=== PATIENT | female | born 1930 ===

== ENCOUNTER 2016-12-21 15:38 | Inpatient (IN) | payer OTHER ==
[2016-12-21 17:16] VITALS: BMI 21.5
[2016-12-21 19:40] VITALS: RESP 20
[2016-12-21] MEDS: Ergocalciferol 50,000 Intl Units Cap PO SCH (21:00)
[2016-12-22] MEDS ORDERED: cefTRIAXone 1 gm/NS 100ML IVPB SCH (09:00)
[2016-12-22] MEDS ORDERED: cefTRIAXone IV 1 gm in Dextros 50 ML BAG IVPB SCH (09:00)
[2016-12-22] MEDS: Lidocaine 5% Patch TD SCH (09:53)
[2016-12-22] MEDS: Enoxaparin 40 mg Syringe SC SCH (09:54)
[2016-12-23] MEDS: cefTRIAXone IV 1 gm in Dextros 50 ML IVPB SCH (08:59)
[2016-12-23] MEDS: Lidocaine 5% Patch TD SCH (09:00)
[2016-12-23] MEDS: Enoxaparin 40 mg Syringe SC SCH (09:02)
--- NOTE | 2016-12-23 11:14 | CP.PCM.HP ---
History of Present Illness - History of Present Illness History of Present Illness: This is an 86 y/o female with unknown PMH was brought in by EMS after being found on the floor at home. She was down for an unknown period of time, and her was found near her; it is not known how long he had been . Patient c/o of dizziness and hip pain. CT head and hip showed no acute pathology. Patient is being admitted to TCU for further physical therapy and occupational therapy and further workup by consultants Pt now alert, oriented , follows commands Consultants Neurosurgery : Dr Melo Neuro: Dr Doyle Psyc: Dr Dietz Podiatry Present on Admission - Present on Admission Any Indicators Present on Admission: No Review of Systems - Hematologic/Lymphatic Additional comments: GENERAL/CONSTITUTIONAL: The patient denies fever, fatigue, weakness, weight gain or weight loss. HEAD, EYES, EARS, NOSE AND THROAT: Eyes - The patient denies pain, redness, loss of vision, double or blurred vision, flashing lights or spots, dryness, Ears, nose, mouth and throat. The patient denies ringing in the ears, loss of hearing, nosebleeds, loss of sense of smell, dry sinuses, sinusitis, post nasal drip, CARDIOVASCULAR: The patient denies chest pain, chest pressure, or irregular heartbeats, RESPIRATORY: The patient denies chronic dry cough, coughing up blood, coughing up mucus, wheezing, or shortness of breath. GASTROINTESTINAL: The patient admits to decreased appetite, denies nausea, vomiting, vomiting blood or coffee ground material, heartburn, regurgitation, diarrhea, constipation, gas, blood in the stools, black tarry stools. GENITOURINARY: The patient denies difficult urination, pain or burning with urination, blood in the urine, frequency, or urgency MUSCULOSKELETAL: The patient denies arm, buttock, thigh or calf cramps. No joint or muscle pain. No muscle weakness or tenderness. No joint swelling, neck pain, back pain. SKIN: The patient denies easy bruising, skin redness, skin rash, hives, sensitivity to sun exposure, tightness, nodules or bumps, hair loss, color changes in the hands or feet with cold. NEUROLOGIC: The patient denies headache, dizziness, fainting, muscle spasm, loss of consciousness, sensitivity or pain in the hands and feet or memory loss. PSYCHIATRIC: The patient denies anxiety, depression, or thoughts of suicide. ENDOCRINE: The patient denies intolerance to hot or cold temperature, flushing, fingernail changes, increased thirst, or increased salt intake HEMATOLOGIC/LYMPHATIC: The patient denies anemia, bleeding tendency or clotting tendency. ALLERGIC/IMMUNOLOGIC: The patient denies rhinitis, asthma, skin sensitivity, latex allergies or sensitivity. Past Patient History - Past Medical History & Family History Past Medical History?: No Past Family History: Reviewed and not pertinent - Past Social History Smoking Status: Unknown If Ever Smoked - HEMATOLOGICAL/ONCOLOGICAL Hx AIDS: No Hx Human Immunodeficiency Virus (HIV): No - MUSCULOSKELETAL/RHEUMATOLOGICAL Hx Falls: Yes - PSYCHIATRIC Hx Substance Use: No (unknown) - SURGICAL HISTORY Hx Surgeries: No (unable to obtain) - ANESTHESIA Hx Anesthesia: (unknown) Hx Anesthesia Reactions: (Unknown) Hx Malignant Hyperthermia: (unknown) Meds Allergies/Adverse Reactions: Allergies Allergy/AdvReac Type Severity Reaction Status Date / Time No Known Allergies Allergy Verified 12/18/16 19:17 Physical Exam - Additional Findings Additional findings: Physical exam: Constitutional- cooperative, awake although somewhat lethargic, responds appropriately Head- NCAT, PERRL Eye- PERRL, normal accommodation ENT- normal exam, MMM. Neck- normal inspection, supple, no JVD Respiratory- CTAB, no wheezes rales rhonchi Cardiovascular- RRR, +S1, +S2 no MRG GI/Abdominal- normal bowel sounds, soft, no mass, no hsm Skin- warm, dry Extremities Exam- normal capillary refill, normal inspection Neurological Exam- alert, stable gait Psych- normal mood, normal affect Results - Vital Signs Recent Vital Signs: Last Vital Signs Temp 98.1 F 12/22/16 18:55 Pulse 75 12/22/16 18:55 Resp 20 12/22/16 18:55 BP 136/77 12/22/16 18:55 Pulse Ox 100 12/22/16 18:55 - Labs Labs: Laboratory Results - last 24 hr 12/22/16 12/22/16 12/22/16 06:17 10:48 16:33 POC Glucose (mg/dL) 90 156 H 98 Assessment & Plan - Assessment and Plan (Free Text) Plan: This is an 86 y/o female with unknown PMH was brought in by EMS after being found on the floor at home. She was down for an unknown period of time, and her was found near her; it is not known how long he had been . Patient c/o of dizziness and hip pain. CT head and hip showed no acute pathology. Pt now alert, oriented , follows commands 1. Altered mental state unclear etiology- possibly related to UTI As per chart and police report patient was found on the floor in her home for unknown period of time and her was next to her CT head showed no acute pathology , Ventriculomegaly Ventriculomegaly may be due to atrophy from old age however further work up as outpt with Dr Victor to r/o NPH Neurology consulted - Dr Doyle carotid doppler showed no stenosis Echo- Mild concentric LV hypertrophy, LV function normal, LVEF within normal range Psych eval since patient's just passed and she was found lying next to him - Further monitoring in TCU and PT/OT 2. UTI urine appears cloudy with WBC , bacteria and LE Continue Rocephin IV Urine culture: Gram neg rods 3. Fall Ct hip with no fracture Ct head with no acute pathology Continue Lidoderm patch to sacral and right hip area PT / OT ongoing 4. Stage II sacral decubitus ulcer most likely secondary to moisture contact wound care consult 5. DVT PPx lovenox
[2016-12-23] MEDS ORDERED: Oxycodone/Acetaminophen 5/325 mg Tab PO PRN (17:04)
[2016-12-24] MEDS: Enoxaparin 40 mg Syringe SC SCH (09:03)
[2016-12-24] MEDS: Lidocaine 5% Patch TD SCH (09:04)
[2016-12-24] MEDS: cefTRIAXone IV 1 gm in Dextros 50 ML IVPB SCH (09:06)
[2016-12-25] MEDS: Lidocaine 5% Patch TD SCH (08:33)
[2016-12-25] MEDS: Enoxaparin 40 mg Syringe SC SCH (08:33)
[2016-12-25] MEDS: cefTRIAXone IV 1 gm in Dextros 50 ML IVPB SCH (08:33)
--- NOTE | 2016-12-25 12:07 | CP.PCM.PN ---
Subjective - Date & Time of Evaluation Date of Evaluation: 12/25/16 Time of Evaluation: 11:30 - Subjective Subjective: Elderly female lying in bed , complaining of pain to her right flank and right buttock area. With episode of diarrhea today that was reported back as C.diff positive. states that is unable to ambulate because of the pain Tmax 100, BP stable Objective - Vital Signs/Intake and Output Vital Signs (last 24 hours): Temp Pulse Resp BP Pulse Ox 98.1 F 79 20 132/81 95 12/25/16 08:24 12/25/16 08:24 12/25/16 08:24 12/25/16 08:24 12/25/16 08:24 - Medications Medications: Current Medications Acetaminophen (Tylenol 325mg Tab) 650 mg PO Q6 PRN PRN Reason: Headache Last Admin: 12/25/16 01:39 Dose: 650 mg Docusate Sodium (Colace) 100 mg PO BID [facility] Last Admin: 12/25/16 08:32 Dose: 100 mg Enoxaparin Sodium (Lovenox) 40 mg SC DAILY [facility] PRN Reason: Protocol Last Admin: 12/25/16 08:33 Dose: 40 mg Ergocalciferol (Drisdol 50,000 Intl Units Cap) 1 cap PO Q7D [facility] Last Admin: 12/21/16 21:00 Dose: 1 cap Famotidine (Pepcid) 20 mg PO DAILY [facility] Last Admin: 12/25/16 08:33 Dose: 20 mg Ceftriaxone Sodium (Rocephin Iv 1 Gm Duplex) 50 mls @ 50 mls/hr IVPB DAILY [facility] Last Admin: 12/25/16 08:33 Dose: 50 mls/hr Lidocaine (Lidoderm) 1 ea TD DAILY [facility] Last Admin: 12/25/16 08:33 Dose: 1 ea Oxycodone/Acetaminophen (Percocet 5/325 Mg Tab) 1 tab PO Q6 PRN PRN Reason: Pain, moderate (4-7) Stop: 12/26/16 17:05 - Constitutional Appears: Non-toxic, No Acute Distress, Other (eldery, stated age) - Head Exam Head Exam: ATRAUMATIC, NORMAL INSPECTION, NORMOCEPHALIC - Eye Exam Eye Exam: EOMI, Normal appearance, PERRL Pupil Exam: NORMAL ACCOMODATION - ENT Exam ENT Exam: Mucous Membranes Moist, Normal Exam - Neck Exam Neck Exam: Full ROM, Normal Inspection - Respiratory Exam Respiratory Exam: Clear to Ausculation Bilateral, NORMAL BREATHING PATTERN. absent: Rales, Rhonchi, Wheezes - Cardiovascular Exam Cardiovascular Exam: REGULAR RHYTHM, +S1, +S2. absent: JVD - GI/Abdominal Exam GI & Abdominal Exam: Soft, Normal Bowel Sounds. absent: Distended, Guarding, Tenderness, Rebound - Rectal Exam Rectal Exam: Deferred - Extremities Exam Extremities Exam: Normal Capillary Refill, Normal Inspection. absent: Calf Tenderness, Pedal Edema - Back Exam Back Exam: NORMAL INSPECTION - Neurological Exam Neurological Exam: Alert, Awake, CN II-XII Intact, Oriented x3 - Psychiatric Exam Psychiatric exam: Flat Affect - Skin Skin Exam: Dry, Normal Color, Warm Assessment and Plan - Assessment and Plan (Free Text) Assessment: 86 y/o female with unknown PMH was brought in by EMS after being found on the floor at home. She was down for an unknown period of time, and her was found near her; it is not known how long he had been . Patient complained of dizziness and hip pain. CT head and hip showed no acute pathology. initially she was admitted for AMS of unknown etiology and was diagnosed with UTI secondary to proteus and satrted on rocephin IV. She was transferred to TCu for physical therapy and continuation of IV antibiotics At present she is AAOx3 with diarrhea this AM and pain to right buttock and flank area 1. C.diff colitis with episode of diarrhea today that was reported positive for Toxin and Ag Will place on contact isolation Start Flagyl 500 mg Iv Q8 hours 2. Deconditioning, generalized body aches /history of fall imaging on admission reported with no acute pathology or fracture Continue pian management with lidoderm patch and percoset PRN continue physical therapy 3. UTI urine positive for Proteus multi drug resistant Will d/c rocephin. Give 1 dose of Meropenem IV ID consulted 4. Altered mental state-- unclear etiology, resolved possibly related to UTI As per chart and police report patient was found on the floor in her home for unknown period of time and her was next to her CT head showed no acute pathology , Ventriculomegaly Ventriculomegaly may be due to atrophy from old age however further work up as outpt with Dr Victor to r/o [facility]PH Neurology consulted - Dr Doyle carotid doppler showed no stenosis Echo- Mild concentric LV hypertrophy, LV function normal, LVEF within normal range Psych eval appreciated. No psychiatric admission or medications recommended at this time 5. Stage II sacral decubitus ulcer most likely secondary to moisture contact wound care consulted 6. DVT PPx SCD Discontinued lovenox secondary to thrombocytopenia 7. Thrombocytopenia unclear etiology monitor for now lovenox discontinued
[2016-12-25] MEDS ORDERED: Meropenem 1 GM in Sodium Chloride 0.9% 100 ML IVPB ONE (14:30)
[2016-12-25] MEDS ORDERED: metroNIDAZOLE 500mg/100ml NS 100 ML IVPB SCH (17:00)
--- NOTE | 2016-12-25 18:16 | CP.PCM.CON ---
History of Present Illness - History of Present Illness History of Present Illness: 86 year old female seen for elongated painful toenails. Patient is AAO x 3 and NAD resting comfortably in bed. Denies any further pedal complaints at this time. Past Patient History - Past Medical History & Family History Past Medical History?: No Past Family History: Reviewed and not pertinent - Past Social History Smoking Status: Unknown If Ever Smoked - HEMATOLOGICAL/ONCOLOGICAL Hx AIDS: No Hx Human Immunodeficiency Virus (HIV): No - MUSCULOSKELETAL/RHEUMATOLOGICAL Hx Falls: Yes - PSYCHIATRIC Hx Substance Use: No (unknown) - SURGICAL HISTORY Hx Surgeries: No (unable to obtain) - ANESTHESIA Hx Anesthesia: (unknown) Hx Anesthesia Reactions: (Unknown) Hx Malignant Hyperthermia: (unknown) Meds Allergies/Adverse Reactions: Allergies Allergy/AdvReac Type Severity Reaction Status Date / Time No Known Allergies Allergy Verified 12/18/16 19:17 - Medications Medications: Current Medications Acetaminophen (Tylenol 325mg Tab) 650 mg PO Q6 PRN PRN Reason: Headache Last Admin: 12/25/16 16:25 Dose: 650 mg Enoxaparin Sodium (Lovenox) 40 mg SC DAILY [facility] PRN Reason: Protocol Last Admin: 12/25/16 08:33 Dose: 40 mg Ergocalciferol (Drisdol 50,000 Intl Units Cap) 1 cap PO Q7D [facility] Last Admin: 12/21/16 21:00 Dose: 1 cap Famotidine (Pepcid) 20 mg PO DAILY [facility] Last Admin: 12/25/16 08:33 Dose: 20 mg Meropenem 500 mg/ Sodium (Chloride) 100 mls @ 100 mls/hr IVPB Q8 [facility] PRN Reason: Protocol Lidocaine (Lidoderm) 1 ea TD DAILY [facility] Last Admin: 12/25/16 08:33 Dose: 1 ea Oxycodone/Acetaminophen (Percocet 5/325 Mg Tab) 1 tab PO Q6 PRN PRN Reason: Pain, moderate (4-7) Stop: 12/26/16 17:05 Last Admin: 12/25/16 12:41 Dose: 1 tab Vancomycin HCl (Vancocin (Oral/Rectal Use)) 125 mg [place] Q6 [facility] PRN Reason: Protocol Physical Exam - Constitutional Appears: Well, Non-toxic, No Acute Distress - Extremities Exam Additional comments: LE focused exam Vasc: DP/PT pulses palpable 2/4 b/l. Skin temperature warm to warm from proximal to distal. CFT < 3 seconds to all digits b/l. Pedal hair growth appreciated. No edema noted b/l Neuro: Epicritic and protective sensation grossly intact b/l Derm: No open lesions, wounds, maceration, xerosis, abnormal pigmentation or abnormal growths noted. Nails noted to be elongated, dystrophic and discolored MSK: No POP to b/l LE. MMT 5/5 on inversion, eversion, dorsiflexion and plantarflexion of feet b/l. ROM WNL to all major joints of LE - Neurological Exam Neurological exam: Alert, Oriented x3 - Psychiatric Exam Psychiatric exam: Normal Affect, Normal Mood Results - Vital Signs Recent Vital Signs: Last Vital Signs Temp 100.0 F H 12/25/16 16:45 Pulse 82 12/25/16 16:45 Resp 20 12/25/16 16:45 BP 122/68 12/25/16 16:45 Pulse Ox 95 12/25/16 16:45 - Labs Labs: Laboratory Results - last 24 hr 12/24/16 12/25/16 12/25/16 20:51 05:12 10:55 POC Glucose (mg/dL) 112 H 102 115 H C. difficile Ag & Toxin 12/25/16 12/25/16 11:57 16:00 POC Glucose (mg/dL) 108 C. difficile Ag & Toxin Positive H Assessment & Plan - Assessment and Plan (Free Text) Assessment: 86 year old female seen for elongated, painful toenails b/l Plan: Patient seen and evaluated bedside Nails reduced to appropriate length using nail nippers without incident Patient tolerated procedure well Podiatry will sign off at this time Thank you for the consult, please reconsult as needed - Date & Time Date: 12/25/16 Time: 18:17
[2016-12-25] MEDS: Vancomycin 500 mg (Oral/Rectal USE) PR SCH (21:58)
[2016-12-26] MEDS ORDERED: Meropenem 500 MG in Sodium Chloride 0.9% 100 ML IVPB SCH (01:00)
[2016-12-26] MEDS: Vancomycin 500 mg (Oral/Rectal USE) PR SCH ×4 (03:40→21:24)
[2016-12-26] MEDS: Meropenem 500 MG in Sodium Chloride 0.9% 100 ML IVPB SCH ×3 (04:15→18:49)
[2016-12-26 07:28] LABS: BLOOD UREA NITROGEN 10 mg/dl (7-17); CALCIUM 8.4 mg/dL (8.4-10.2); CARBON DIOXIDE 29 mmol/L (22-30); CHLORIDE 100 mmol/L (98-107); GFR AFRICAN-AMERICAN > 60; GLUCOSE,RANDOM 103 mg/dL (65-105); POTASSIUM 3.5 MMOL/L (3.6-5.0); SODIUM 136 mmol/l (132-148)
[2016-12-26 07:49] LABS: HEMATOCRIT 35.2 % (34.0-47.0); MEAN CELL VOLUME 95.1 fl (81.0-99.0); MEAN CORPUSCULAR HEMOGLOBIN 30.8 pg (27.0-31.0); MEAN CORPUSCULAR HGB CONC 32.4 g/dL (33.0-37.0); RED CELL DISTRIBUTION WIDTH 13.8 % (11.5-14.5); WHITE BLOOD COUNT 20.5 K/uL (4.8-10.8)
[2016-12-26] MEDS: Lidocaine 5% Patch TD SCH (09:14)
[2016-12-26] MEDS: Enoxaparin 40 mg Syringe SC SCH (09:15)
--- NOTE | 2016-12-26 12:01 | CP.PCM.CON ---
History of Present Illness - History of Present Illness History of Present Illness: This is an 86 y/o female with unknown PMH was brought in by EMS after being found on the floor at home. Urine culture postive for MDR proteus Past Patient History - Past Medical History & Family History Past Medical History?: No Past Family History: Reviewed and not pertinent - Past Social History Smoking Status: Unknown If Ever Smoked - HEMATOLOGICAL/ONCOLOGICAL Hx AIDS: No Hx Human Immunodeficiency Virus (HIV): No - MUSCULOSKELETAL/RHEUMATOLOGICAL Hx Falls: Yes - PSYCHIATRIC Hx Substance Use: No (unknown) - SURGICAL HISTORY Hx Surgeries: No (unable to obtain) - ANESTHESIA Hx Anesthesia: (unknown) Hx Anesthesia Reactions: (Unknown) Hx Malignant Hyperthermia: (unknown) Meds Allergies/Adverse Reactions: Allergies Allergy/AdvReac Type Severity Reaction Status Date / Time No Known Allergies Allergy Verified 12/18/16 19:17 - Medications Medications: Current Medications Acetaminophen (Tylenol 325mg Tab) 650 mg PO Q6 PRN PRN Reason: Headache Last Admin: 12/25/16 16:25 Dose: 650 mg Acetaminophen (Tylenol 325mg Tab) 650 mg PO Q6 PRN PRN Reason: Fever >100.4 F Enoxaparin Sodium (Lovenox) 40 mg SC DAILY [facility] PRN Reason: Protocol Last Admin: 12/26/16 09:15 Dose: 40 mg Ergocalciferol (Drisdol 50,000 Intl Units Cap) 1 cap PO Q7D [facility] Last Admin: 12/21/16 21:00 Dose: 1 cap Famotidine (Pepcid) 20 mg PO DAILY [facility] Last Admin: 12/26/16 09:15 Dose: 20 mg Meropenem 500 mg/ Sodium (Chloride) 100 mls @ 100 mls/hr IVPB Q8@0500,1300, 2100 [facility] PRN Reason: Protocol Last Admin: 12/26/16 04:15 Dose: 100 mls/hr Lidocaine (Lidoderm) 1 ea TD DAILY [facility] Last Admin: 12/26/16 09:14 Dose: 1 ea Oxycodone/Acetaminophen (Percocet 5/325 Mg Tab) 1 tab PO Q6 PRN PRN Reason: Pain, moderate (4-7) Stop: 12/26/16 17:05 Last Admin: 12/25/16 12:41 Dose: 1 tab Vancomycin HCl (Vancocin (Oral/Rectal Use)) 125 mg [place] Q6 [facility] PRN Reason: Protocol Last Admin: 12/26/16 09:15 Dose: 125 mg Results - Vital Signs Recent Vital Signs: Last Vital Signs Temp 98.1 F 12/26/16 08:09 Pulse 81 12/26/16 08:09 Resp 20 12/26/16 08:09 BP 122/64 12/26/16 08:09 Pulse Ox 95 12/26/16 08:09 - Labs Result Diagrams: 12/26/16 05:55 12/26/16 05:55 Labs: Laboratory Results - last 24 hr 12/25/16 12/25/16 12/25/16 11:57 16:00 20:33 WBC RBC Hgb Hct MCV MCH MCHC RDW Plt Count Sodium Potassium Chloride Carbon Dioxide Anion Gap BUN Creatinine Est GFR ( Amer) Est GFR (Non-Af Amer) POC Glucose (mg/dL) 108 112 H Random Glucose Calcium C. difficile Ag & Toxin Positive H 12/26/16 12/26/16 12/26/16 05:17 05:55 05:55 WBC 20.5 H D RBC 3.70 L Hgb 11.4 L Hct 35.2 MCV 95.1 MCH 30.8 MCHC 32.4 L RDW 13.8 Plt Count 210 Sodium 136 Potassium 3.5 L Chloride 100 Carbon Dioxide 29 Anion Gap 11 BUN 10 Creatinine 0.6 L Est GFR ( Amer) > 60 Est GFR (Non-Af Amer) > 60 POC Glucose (mg/dL) 106 Random Glucose 103 Calcium 8.4 C. difficile Ag & Toxin Assessment & Plan - Assessment and Plan (Free Text) Assessment: MDR proteus UTI C.diff diarrhea Continue Meropenem for a total of 7 days Continue Vancomycin 125 mg po q1d for 2 weeks
[2016-12-27] MEDS: Meropenem 500 MG in Sodium Chloride 0.9% 100 ML IVPB SCH ×4 (00:49→16:14)
[2016-12-27] MEDS: Vancomycin 500 mg (Oral/Rectal USE) PR SCH ×3 (03:22→16:16)
[2016-12-27] MEDS: Enoxaparin 40 mg Syringe SC SCH (08:52)
[2016-12-27] MEDS: Lidocaine 5% Patch TD SCH (08:52)
[2016-12-27 11:04] LABS: BLOOD UREA NITROGEN 10 mg/dl (7-17); CALCIUM 8.1 mg/dL (8.4-10.2); CARBON DIOXIDE 27 mmol/L (22-30); CHLORIDE 104 mmol/L (98-107); GFR AFRICAN-AMERICAN > 60; GLUCOSE,RANDOM 133 mg/dL (65-105); POTASSIUM 3.6 MMOL/L (3.6-5.0); SODIUM 136 mmol/l (132-148)
[2016-12-27 11:06] LABS: BASO % 0.2 % (0.0-2.0); EOS # 0.2 K/uL (0.0-0.7); EOS % 0.9 % (0.0-4.0); HEMATOCRIT 33.1 % (34.0-47.0); LYMPH # 0.8 K/uL (1.0-4.3); LYMPH % 4.1 % (20.0-40.0); MEAN CELL VOLUME 95.3 fl (81.0-99.0); MEAN CORPUSCULAR HEMOGLOBIN 30.8 pg (27.0-31.0); MEAN CORPUSCULAR HGB CONC 32.3 g/dL (33.0-37.0); MEAN PLATELET VOLUME 9.3 fl (7.2-11.7); MONO # 1.6 K/uL (0.0-0.8); MONO % 8.3 % (0.0-10.0); NEUT % 86.5 % (50.0-75.0); PLATELET COUNT 234 K/uL (130-400); RED CELL DISTRIBUTION WIDTH 13.9 % (11.5-14.5); WHITE BLOOD COUNT 19.6 K/uL (4.8-10.8)
--- NOTE | 2016-12-27 11:36 | CP.PCM.PN ---
Subjective - Date & Time of Evaluation Date of Evaluation: 12/27/16 Time of Evaluation: 11:00 - Subjective Subjective: Patient seen and examined bedside. Elderly female of stated age lying in bed in NAD. Complains of some abdominal pain and with episodes of diarrhea With poor PO intake and refused therapy today Tmax 100.9 WBC 19 K Hgb 10.7 No acute issues overnight Objective - Vital Signs/Intake and Output Vital Signs (last 24 hours): Temp Pulse Resp BP Pulse Ox 98.1 F 76 20 109/61 96 12/27/16 08:18 12/27/16 08:18 12/27/16 08:18 12/27/16 08:18 12/27/16 08:18 - Medications Medications: Current Medications Acetaminophen (Tylenol 325mg Tab) 650 mg PO Q6 PRN PRN Reason: Headache Last Admin: 12/25/16 16:25 Dose: 650 mg Acetaminophen (Tylenol 325mg Tab) 650 mg PO Q6 PRN PRN Reason: Fever >100.4 F Last Admin: 12/26/16 16:36 Dose: 650 mg Enoxaparin Sodium (Lovenox) 40 mg SC DAILY [facility] [place] PRN Reason: Protocol Last Admin: 12/27/16 08:52 Dose: 40 mg Ergocalciferol (Drisdol 50,000 Intl Units Cap) 1 cap PO Q7D [facility] [place] Last Admin: 12/21/16 21:00 Dose: 1 cap Famotidine (Pepcid) 20 mg PO DAILY [facility] [place] Last Admin: 12/27/16 08:52 Dose: 20 mg Dextrose/Sodium Chloride (Dextrose 5%-0.9% Ns 500 Ml) 1,000 mls @ 80 mls/hr IV .[id number] [facility] [place] Stop: 12/27/16 16:14 Last Admin: 12/26/16 16:40 Dose: 80 mls/hr Meropenem 500 mg/ Sodium (Chloride) 100 mls @ 100 mls/hr IVPB Q8@0100,0900, 1700 [facility] [place] PRN Reason: Protocol Last Admin: 12/27/16 08:48 Dose: 100 mls/hr Lidocaine (Lidoderm) 1 ea TD DAILY [facility] [place] Last Admin: 12/27/16 08:52 Dose: 1 ea Vancomycin HCl (Vancocin (Oral/Rectal Use)) 125 mg [place] Q6 [facility] PRN Reason: Protocol Last Admin: 12/27/16 09:07 Dose: 125 mg - Labs Labs: 12/27/16 10:40 12/27/16 10:40 - Constitutional Appears: Non-toxic, No Acute Distress - Head Exam Head Exam: ATRAUMATIC, NORMAL INSPECTION, NORMOCEPHALIC - Eye Exam Eye Exam: EOMI, Normal appearance, PERRL Pupil Exam: NORMAL ACCOMODATION - ENT Exam ENT Exam: Mucous Membranes Moist, Normal Exam - Neck Exam Neck Exam: Full ROM, Normal Inspection - Respiratory Exam Respiratory Exam: Clear to Ausculation Bilateral, NORMAL BREATHING PATTERN. absent: Rhonchi, Wheezes - Cardiovascular Exam Cardiovascular Exam: REGULAR RHYTHM, RRR, +S1, +S2. absent: JVD - GI/Abdominal Exam GI & Abdominal Exam: Soft, Normal Bowel Sounds. absent: Distended, Guarding, Rigid, Rebound - Rectal Exam Rectal Exam: Deferred - Extremities Exam Extremities Exam: Full ROM, Normal Capillary Refill, Normal Inspection. absent : Pedal Edema - Back Exam Back Exam: NORMAL INSPECTION - Neurological Exam Neurological Exam: Alert, Awake, CN II-XII Intact, Oriented x3 - Psychiatric Exam Psychiatric exam: Flat Affect - Skin Skin Exam: Dry, Normal Color, Warm Additional comments: moisture related buttock excoriation Assessment and Plan - Assessment and Plan (Free Text) Assessment: 86 y/o female with unknown PMH was brought in by EMS after being found on the floor at home. She was down for an unknown period of time, and her was found near her; it is not known how long he had been . Patient complained of dizziness and hip pain. CT head and hip showed no acute pathology. Initially she was admitted for AMS of unknown etiology and was diagnosed with UTI secondary to proteus and started on rocephin IV. She was transferred to TCu for physical therapy and continuation of IV antibiotics. While in TCU her urine cultures were reported as Multi drug resistant so rocephin changed to Meropenem IV. She also started to have diarrhea and was diagnosed with C.diff colitis and started on Vancomycin PO. ID consulted At present she is AAOx3 with diarrhea and poor po intake 1. C.diff colitis Still with episodes of diarrhea Continue contact isolation WBC elevated to 19 K Tmax 100.9 Continue IVF since patient has poor PO intake and multi episodes of diarrhea On Vancomycin 125 mg po QID as per ID ID consult on board with Dr. Jimenez recommended 2 weeks treatment for C. diff colitis 2. Deconditioning, generalized body aches /history of fall imaging on admission reported with no acute pathology or fracture Continue pain management with lidoderm patch and percoset PRN continue physical therapy 3. UTI urine positive for Proteus multi drug resistant rocephin discontinued and started Meropenem ID consulted Will treat with total 7 days of Meropenem ( 3 # today 4. Altered mental state-- unclear etiology, resolved possibly related to UTI As per chart and police report patient was found on the floor in her home for unknown period of time and her was next to her CT head showed no acute pathology , Ventriculomegaly Ventriculomegaly may be due to atrophy from old age however further work up as outpt with Dr Victor to r/o [facility]PH Neurology consulted - Dr Doyle carotid doppler showed no stenosis Echo- Mild concentric LV hypertrophy, LV function normal, LVEF within normal range Psych eval appreciated. No psychiatric admission or medications recommended at this time 5. Stage II sacral decubitus ulcer most likely secondary to moisture contact wound care consulted 6. DVT PPx SCD Discontinued lovenox secondary to thrombocytopenia 7. Thrombocytopenia unclear etiology monitor for now lovenox discontinued 8. Anemia of chronic disease Continue monitoring hgb 10.7
[2016-12-27 12:12] LABS: EOSINOPHIL 1 % (0-7); NEUTROPHIL 91 % (42-75); TOTAL CELLS COUNTED 100
[2016-12-27] MEDS ORDERED: Oxycodone/Acetaminophen 5/325 mg Tab PO PRN (12:30)
[2016-12-28] MEDS: Vancomycin 500 mg (Oral/Rectal USE) PR SCH ×5 (00:20→22:25)
[2016-12-28] MEDS: Meropenem 500 MG in Sodium Chloride 0.9% 100 ML IVPB SCH ×4 (00:33→22:27)
[2016-12-28] MEDS: Enoxaparin 40 mg Syringe SC SCH (08:56)
[2016-12-28] MEDS: Lidocaine 5% Patch TD SCH (08:57)
--- NOTE | 2016-12-28 17:50 | CP.PCM.PN ---
Subjective - Date & Time of Evaluation Date of Evaluation: 12/28/16 Time of Evaluation: 13:00 - Subjective Subjective: patient seen bedside. elderly female lying in bed with flat affect in NAD Denies any pain Poor PO intake No diarrhea today Hemodynamically stable, afebrile Objective - Vital Signs/Intake and Output Vital Signs (last 24 hours): Temp Pulse Resp BP Pulse Ox 98.8 F 75 20 134/78 98 12/28/16 17:03 12/28/16 17:03 12/28/16 17:03 12/28/16 17:03 12/28/16 17:03 - Medications Medications: Current Medications Acetaminophen (Tylenol 325mg Tab) 650 mg PO Q6 PRN PRN Reason: Headache Last Admin: 12/25/16 16:25 Dose: 650 mg Acetaminophen (Tylenol 325mg Tab) 650 mg PO Q6 PRN PRN Reason: Fever >100.4 F Last Admin: 12/26/16 16:36 Dose: 650 mg Enoxaparin Sodium (Lovenox) 40 mg SC DAILY DAVE PRN Reason: Protocol Last Admin: 12/28/16 08:56 Dose: 40 mg Ergocalciferol (Drisdol 50,000 Intl Units Cap) 1 cap PO Q7D [facility] Last Admin: 12/21/16 21:00 Dose: 1 cap Famotidine (Pepcid) 20 mg PO DAILY [facility] Last Admin: 12/28/16 08:57 Dose: 20 mg Meropenem 500 mg/ Sodium (Chloride) 100 mls @ 100 mls/hr IVPB Q8@0500,1300, 2100 DAVE PRN Reason: Protocol Last Admin: 12/28/16 14:04 Dose: 100 mls/hr Lidocaine (Lidoderm) 1 ea TD DAILY [facility] Last Admin: 12/28/16 08:57 Dose: 1 ea Oxycodone/Acetaminophen (Percocet 5/325 Mg Tab) 1 tab PO Q4 PRN PRN Reason: Pain, severe (8-10) Stop: 12/30/16 12:31 Last Admin: 12/27/16 12:59 Dose: 1 tab Vancomycin HCl (Vancocin (Oral/Rectal Use)) 125 mg LA Q6 DAVE PRN Reason: Protocol Last Admin: 12/28/16 16:50 Dose: 125 mg - Labs Labs: 12/27/16 10:40 12/27/16 10:40 - Constitutional Appears: Non-toxic, No Acute Distress - Head Exam Head Exam: ATRAUMATIC, NORMAL INSPECTION, NORMOCEPHALIC - Eye Exam Eye Exam: EOMI, Normal appearance, PERRL Pupil Exam: NORMAL ACCOMODATION - ENT Exam ENT Exam: Mucous Membranes Moist, Normal Exam - Neck Exam Neck Exam: Full ROM, Normal Inspection - Respiratory Exam Respiratory Exam: Clear to Ausculation Bilateral, NORMAL BREATHING PATTERN. absent: Rales, Rhonchi, Wheezes - Cardiovascular Exam Cardiovascular Exam: REGULAR RHYTHM, RRR, +S1, +S2. absent: JVD - GI/Abdominal Exam GI & Abdominal Exam: Soft, Normal Bowel Sounds. absent: Distended, Guarding, Tenderness, Rebound - Rectal Exam Rectal Exam: Deferred - Extremities Exam Extremities Exam: Full ROM, Normal Inspection. absent: Calf Tenderness, Pedal Edema, Tenderness - Back Exam Back Exam: NORMAL INSPECTION - Neurological Exam Neurological Exam: Alert, Awake, CN II-XII Intact, Oriented x3 - Psychiatric Exam Psychiatric exam: Flat Affect - Skin Skin Exam: Dry, Warm Additional comments: unstagable buttock moisture related excoriation Assessment and Plan - Assessment and Plan (Free Text) Assessment: 86 y/o female with unknown PMH was brought in by EMS after being found on the floor at home. She was down for an unknown period of time, and her was found near her; it is not known how long he had been . Patient complained of dizziness and hip pain. CT head and hip showed no acute pathology. Initially she was admitted for AMS of unknown etiology and was diagnosed with UTI secondary to proteus and started on rocephin IV. She was transferred to [facility] for physical therapy and continuation of IV antibiotics. While in TCU her urine cultures were reported as Multi drug resistant so rocephin changed to Meropenem IV. She also started to have diarrhea and was diagnosed with C.diff colitis and started on Vancomycin PO. ID consulted At present she is AAOx3 with poor po intake , weak and with flat affect. No episodes of diarrhea today 1. C.diff colitis No diarrghea today Continue contact isolation WBC trending down to 19 K , afebrile last 24 hours Continue IVF since patient has poor PO intake On Vancomycin 125 mg po QID as per ID ID consult on board with Dr. Jimenez recommended 2 weeks treatment for C. diff colitis 2. Deconditioning, generalized body aches /history of fall imaging on admission reported with no acute pathology or fracture Continue pain management with lidoderm patch and percoset PRN continue physical therapy 3. UTI urine positive for Proteus multi drug resistant rocephin discontinued and started Meropenem ID consulted Will treat with total 7 days of Meropenem ( 4 # today) 4. Altered mental state-- unclear etiology, resolved possibly related to UTI As per chart and police report patient was found on the floor in her home for unknown period of time and her was next to her CT head showed no acute pathology , Ventriculomegaly Ventriculomegaly may be due to atrophy from old age however further work up as outpt with Dr Victor to r/o [facility] Neurology consulted - Dr Doyle carotid doppler showed no stenosis Echo- Mild concentric LV hypertrophy, LV function normal, LVEF within normal range Psych eval appreciated. No psychiatric admission or medications recommended at this time 5. Stage II sacral decubitus ulcer most likely secondary to moisture contact wound care consulted 6. DVT PPx SCD Discontinued lovenox secondary to thrombocytopenia 7. Thrombocytopenia unclear etiology monitor for now lovenox discontinued 8. Anemia of chronic disease Continue monitoring hgb 10.7
[2016-12-28] MEDS: Dextrose 5%/0.9% NS 1,000 ML IV SCH (19:18)
[2016-12-28] MEDS: Ergocalciferol 50,000 Intl Units Cap PO SCH (19:18)
[2016-12-29] MEDS: Meropenem 500 MG in Sodium Chloride 0.9% 100 ML IVPB SCH ×3 (04:37→21:00)
[2016-12-29] MEDS: Vancomycin 500 mg (Oral/Rectal USE) PR SCH ×4 (04:38→21:08)
[2016-12-29] MEDS: Lidocaine 5% Patch TD SCH (09:56)
[2016-12-29] MEDS: Enoxaparin 40 mg Syringe SC SCH (10:02)
[2016-12-29] MEDS: Dextrose 5%/0.9% NS 1,000 ML IV SCH (17:57)
[2016-12-30] MEDS: Meropenem 500 MG in Sodium Chloride 0.9% 100 ML IVPB SCH ×3 (04:51→22:09)
[2016-12-30] MEDS: Vancomycin 500 mg (Oral/Rectal USE) PR SCH ×4 (04:52→22:11)
[2016-12-30] MEDS: Enoxaparin 40 mg Syringe SC SCH (09:43)
[2016-12-30] MEDS: Lidocaine 5% Patch TD SCH (09:44)
[2016-12-30] MEDS ORDERED: Potassium Chloride 20 MEQ in Dextrose 5%/0.9% NS 1,000 ML IV SCH (20:00)
[2016-12-30] MEDS: Potassium Chl 20 mEq in D5-NS 1,000 ML IV SCH (22:10)
[2016-12-31] MEDS: Vancomycin 500 mg (Oral/Rectal USE) PR SCH ×4 (04:36→21:50)
[2016-12-31] MEDS: Meropenem 500 MG in Sodium Chloride 0.9% 100 ML IVPB SCH ×3 (04:38→21:49)
[2016-12-31 06:15] LABS: HEMATOCRIT 31.5 % (34.0-47.0); MEAN CORPUSCULAR HEMOGLOBIN 31.1 pg (27.0-31.0); MEAN CORPUSCULAR HGB CONC 32.4 g/dL (33.0-37.0); RED CELL DISTRIBUTION WIDTH 13.8 % (11.5-14.5); WHITE BLOOD COUNT 5.2 K/uL (4.8-10.8)
[2016-12-31 06:20] LABS: BLOOD UREA NITROGEN 7 mg/dl (7-17); CALCIUM 8.4 mg/dL (8.4-10.2); CARBON DIOXIDE 31 mmol/L (22-30); CHLORIDE 105 mmol/L (98-107); GFR AFRICAN-AMERICAN > 60; GLUCOSE,RANDOM 93 mg/dL (65-105); POTASSIUM 4.2 MMOL/L (3.6-5.0); SODIUM 141 mmol/l (132-148)
[2016-12-31] MEDS: Enoxaparin 40 mg Syringe SC SCH (08:28)
[2016-12-31] MEDS: Lidocaine 5% Patch TD SCH (08:28)
[2016-12-31] MEDS: Potassium Chl 20 mEq in D5-NS 1,000 ML IV SCH (09:06)
[2017-01-01] MEDS: Meropenem 500 MG in Sodium Chloride 0.9% 100 ML IVPB SCH ×3 (04:58→21:30)
[2017-01-01] MEDS: Vancomycin 500 mg (Oral/Rectal USE) PR SCH ×4 (05:05→22:00)
[2017-01-01] MEDS: Enoxaparin 40 mg Syringe SC SCH (08:41)
[2017-01-01] MEDS: Lidocaine 5% Patch TD SCH (08:42)
--- NOTE | 2017-01-01 16:56 | CP.PCM.PN ---
Subjective - Date & Time of Evaluation Date of Evaluation: 01/01/17 Time of Evaluation: 13:00 - Subjective Subjective: Patient is seen at bedside. She complains of some mild crampy pain occasionally to her abdomen. She is in no apparent distress. Continues to have poor po intake and is not meeting current metabolic requirements. Denies cp/sob/ headache. Objective - Vital Signs/Intake and Output Vital Signs (last 24 hours): Temp Pulse Resp BP Pulse Ox 98.2 F 75 20 139/80 99 01/01/17 16:41 01/01/17 16:41 01/01/17 16:41 01/01/17 16:41 01/01/17 16:41 - Medications Medications: Current Medications Acetaminophen (Tylenol 325mg Tab) 650 mg PO Q6 PRN PRN Reason: Headache Last Admin: 01/01/17 02:07 Dose: 650 mg Acetaminophen (Tylenol 325mg Tab) 650 mg PO Q6 PRN PRN Reason: Fever >100.4 F Last Admin: 12/26/16 16:36 Dose: 650 mg Enoxaparin Sodium (Lovenox) 40 mg SC DAILY DAVE PRN Reason: Protocol Last Admin: 01/01/17 08:41 Dose: 40 mg Ergocalciferol (Drisdol 50,000 Intl Units Cap) 1 cap PO Q7D [facility] Last Admin: 12/28/16 19:18 Dose: 1 cap Famotidine (Pepcid) 20 mg PO DAILY [facility] Last Admin: 01/01/17 08:41 Dose: 20 mg Meropenem 500 mg/ Sodium (Chloride) 100 mls @ 100 mls/hr IVPB Q8@0500,1300, 2100 DAVE PRN Reason: Protocol Last Admin: 01/01/17 13:08 Dose: 100 mls/hr Lidocaine (Lidoderm) 1 ea TD DAILY [facility] Last Admin: 01/01/17 08:42 Dose: 1 ea Megestrol Acetate (Megace) 20 mg PO DAILY DAVE Vancomycin HCl (Vancocin (Oral/Rectal Use)) 125 mg FL Q6 DAVE PRN Reason: Protocol Last Admin: 01/01/17 09:38 Dose: 125 mg - Labs Labs: 12/31/16 05:15 12/31/16 05:15 - Additional Findings Additional findings: Constitutional- cooperative, awake, alert. Head- NCAT, PERRL Eye- PERRL, normal accommodation ENT- normal exam, MMM. Neck- normal inspection, supple, no JVD Respiratory- CTAB, no wheezes rales rhonchi Cardiovascular- RRR, +S1, +S2 no MRG GI/Abdominal- normal bowel sounds, soft, no mass, no hsm Skin- warm, dry Extremities Exam- Unstagable buttock moisture related excoriation noted. normal capillary refill, normal inspection Neurological Exam- alert, stable gait Psych- normal mood, normal affect Assessment and Plan - Assessment and Plan (Free Text) Plan: Assessment: 86 y/o female with unknown PMH was brought in by EMS after being found on the floor at home. She was down for an unknown period of time, and her was found near her; it is not known how long he had been . Patient complained of dizziness and hip pain. CT head and hip showed no acute pathology. Initially she was admitted for AMS of unknown etiology and was diagnosed with UTI secondary to proteus and started on rocephin IV. She was transferred to [facility]Cu for physical therapy and continuation of IV antibiotics. While in TCU her urine cultures were reported as Multi drug resistant so rocephin changed to Meropenem IV. She also started to have diarrhea and was diagnosed with C.diff colitis and started on Vancomycin PO. ID consulted At present she is AAOx3 with poor po intake , weak and with flat affect. No episodes of diarrhea today 1. C.diff colitis No diarrhea today Continue contact isolation WBC normalized at 5.2 today, down from 19 previously Started Megace today for encouragement of po intake On Vancomycin 125 mg po QID as per ID ID consult on board with Dr. Jimenez recommended 2 weeks treatment for C. diff colitis 2. Deconditioning, generalized body aches /history of fall imaging on admission reported with no acute pathology or fracture Continue pain management with lidoderm patch and percocet PRN continue physical therapy 3. UTI urine positive for Proteus multi drug resistant rocephin discontinued and started Meropenem ID consulted Will treat with total 7 days of Meropenem ( 4 # today) 4. Altered mental state-- unclear etiology, resolved possibly related to UTI As per chart and police report patient was found on the floor in her home for unknown period of time and her was next to her CT head showed no acute pathology , Ventriculomegaly Ventriculomegaly may be due to atrophy from old age however further work up as outpt with Dr Victor to r/o [facility] Neurology consulted - Dr Doyle carotid doppler showed no stenosis Echo- Mild concentric LV hypertrophy, LV function normal, LVEF within normal range Psych eval appreciated. No psychiatric admission or medications recommended at this time 5. Stage II sacral decubitus ulcer most likely secondary to moisture contact wound care consulted 6. DVT PPx SCD Discontinued lovenox secondary to thrombocytopenia 7. Thrombocytopenia unclear etiology monitor for now lovenox discontinued 8. Anemia of chronic disease Continue monitoring hgb 10.7-->10.2 today
[2017-01-02] MEDS: Vancomycin 500 mg (Oral/Rectal USE) PR SCH ×3 (04:30→16:47)
[2017-01-02] MEDS: Meropenem 500 MG in Sodium Chloride 0.9% 100 ML IVPB SCH (04:30)
[2017-01-02 08:20] VITALS: O2SAT 98
[2017-01-02] MEDS: Enoxaparin 40 mg Syringe SC SCH (09:25)
[2017-01-02] MEDS: Lidocaine 5% Patch TD SCH (09:27)
--- NOTE | 2017-01-02 15:53 | CP.PCM.DIS ---
Provider - Provider Date of Admission: 12/21/16 17:18 Attending physician: Cary Solis DO Primary care physician: blu Consults: ID consult Time Spent in preparation of Discharge (in minutes): 15 Hospital Course - Lab Results Lab Results: Most Recent Lab Values WBC 5.2 K/uL (4.8-10.8) D 12/31/16 05:15 RBC 3.28 Mil/uL (3.80-5.20) L 12/31/16 05:15 Hgb 10.2 g/dL (12.0-16.0) L 12/31/16 05:15 Hct 31.5 % (34.0-47.0) L 12/31/16 05:15 MCV 96.0 fl (81.0-99.0) 12/31/16 05:15 MCH 31.1 pg (27.0-31.0) H 12/31/16 05:15 MCHC 32.4 g/dL (33.0-37.0) L 12/31/16 05:15 RDW 13.8 % (11.5-14.5) 12/31/16 05:15 Plt Count 369 K/uL (130-400) D 12/31/16 05:15 MPV 9.3 fl (7.2-11.7) 12/27/16 10:40 Neut % (Auto) 86.5 % (50.0-75.0) H 12/27/16 10:40 Lymph % (Auto) 4.1 % (20.0-40.0) L 12/27/16 10:40 [place] % (Auto) 8.3 % (0.0-10.0) 12/27/16 10:40 Eos % (Auto) 0.9 % (0.0-4.0) 12/27/16 10:40 Baso % (Auto) 0.2 % (0.0-2.0) 12/27/16 10:40 Neut # 17.0 K/uL (1.8-7.0) H 12/27/16 10:40 Lymph # 0.8 K/uL (1.0-4.3) L 12/27/16 10:40 [place] # 1.6 K/uL (0.0-0.8) H 12/27/16 10:40 Eos # 0.2 K/uL (0.0-0.7) 12/27/16 10:40 Baso # 0.0 K/uL (0.0-0.2) 12/27/16 10:40 Neutrophils % (Manual) 91 % (42-75) H 12/27/16 10:40 Lymphocytes % (Manual) 4 % (20-50) L 12/27/16 10:40 Monocytes % (Manual) 4 % (0-10) 12/27/16 10:40 Eosinophils % (Manual) 1 % (0-7) 12/27/16 10:40 Toxic Granulation Present 12/27/16 10:40 Platelet Estimate Normal (NORMAL) 12/27/16 10:40 Hypochromasia (manual) Slight 12/27/16 10:40 Sodium 141 mmol/l (132-148) 12/31/16 05:15 Potassium 4.2 MMOL/L (3.6-5.0) 12/31/16 05:15 Chloride 105 mmol/L (98-107) 12/31/16 05:15 Carbon Dioxide 31 mmol/L (22-30) H 12/31/16 05:15 Anion Gap 9 (10-20) L 12/31/16 05:15 BUN 7 mg/dl (7-17) 12/31/16 05:15 Creatinine 0.5 mg/dl (0.7-1.2) L 12/31/16 05:15 Est GFR ( Amer) > 60 12/31/16 05:15 Est GFR (Non-Af Amer) > 60 12/31/16 05:15 POC Glucose (mg/dL) 134 mg/dL (65-110) H 01/02/17 10:50 Random Glucose 93 mg/dL (65-105) 12/31/16 05:15 Calcium 8.4 mg/dL (8.4-10.2) 12/31/16 05:15 C. difficile Ag & Toxin Positive (NEGATIVE) H 12/25/16 11:57 - Hospital Course Hospital Course: 86 y/o female with unknown PMH was brought in by EMS after being found on the floor at home. She was down for an unknown period of time, and her was found near her; it is not known how long he had been . Patient complained of dizziness and hip pain. CT head and hip showed no acute pathology. Initially she was admitted for AMS of unknown etiology and was diagnosed with UTI secondary to proteus and started on rocephin IV. She was transferred to TCU for physical therapy and continuation of IV antibiotics. While in TCU her urine cultures were reported as Multi drug resistant so rocephin changed to Meropenem IV. She also started to have diarrhea and was diagnosed with C.diff colitis and started on Vancomycin PO. ID was consulted At present she is AAOx3 with poor po intake , weak and with flat affect. No episodes of diarrhea. Will discharge to [facility] today to finish treatment and PT Finished 1 week of IV meropenem for UTI Has been on Vancomycin Po for 1 week. Will continue 1 more week as per ID 1. C.diff colitis No more diarrhea Continue contact isolation WBC normalized at 5.2 has been on vanco po for 1 week.Continue vanco po 1 more week as per ID On Vancomycin 125 mg po QID as per ID ID consult on board with Dr. Jimenez 2. Deconditioning, generalized body aches /history of fall imaging on admission reported with no acute pathology or fracture Continue pain management with lidoderm patch and percocet PRN continue physical therapy in [facility] 3. UTI urine positive for Proteus multi drug resistant received Meropenem iv for 1 week as per ID 4. Altered mental state-- unclear etiology, resolved possibly related to UTI As per chart and police report patient was found on the floor in her home for unknown period of time and her was next to her CT head showed no acute pathology , Ventriculomegaly Ventriculomegaly may be due to atrophy from old age however further work up as outpt with Dr Victor to r/o [facility] Neurology consulted - Dr Doyle carotid doppler showed no stenosis Echo- Mild concentric LV hypertrophy, LV function normal, LVEF within normal range Psych eval appreciated. No psychiatric admission or medications recommended at this time 5. Stage II sacral decubitus ulcer most likely secondary to moisture contact wound care consulted 6. DVT PPx SCD lovenox 7. Thrombocytopenia--resolved unclear etiology-- resolved restart lovenox 8. Anemia of chronic disease Continue monitoring hgb 10.7-->10.2 today Discharge Exam - Head Exam Head Exam: ATRAUMATIC, NORMAL INSPECTION, NORMOCEPHALIC - Eye Exam Eye Exam: EOMI, Normal appearance, PERRL Pupil Exam: NORMAL ACCOMODATION - ENT Exam ENT Exam: Mucous Membranes Moist, Normal Exam - Neck Exam Neck exam: Full Rom, Normal Inspection - Respiratory Exam Respiratory Exam: Clear to PA & Lateral, NORMAL BREATHING PATTERN. absent: Rhonchi, Wheezes, Respiratory Distress - Cardiovascular Exam Cardiovascular Exam: REGULAR RHYTHM, RRR, +S1, +S2. absent: JVD - GI/Abdominal Exam GI & Abdominal Exam: Normal Bowel Sounds, Soft. absent: Distended, Guarding, Rebound, Tenderness - Rectal Exam Rectal Exam: Deferred - Extremities Exam Extremities exam: normal capillary refill, normal inspection, pedal pulses present - Back Exam Back exam: NORMAL INSPECTION - Neurological Exam Neurological exam: Alert, CN II-XII Intact, Oriented x3, Reflexes Normal - Psychiatric Exam Psychiatric exam: Flat Affect - Skin Skin Exam: Dry, Normal Color, Warm Additional comments: moisture related sacral area wound Discharge Plan - Follow Up Plan Condition: STABLE Disposition: HOME/ ROUTINE Patient education suggested?: No
[2017-01-02 17:02] VITALS: BP 136/74; PULSE 83; TEMP 98.1
== END 2017-01-02 19:40 | DRG 690 ==
LOC: H.TCU 17:18
PROVIDERS: ADMIT Student in an Organized Health Care Education/Training Program; ATTEND Student in an Organized Health Care Education/Training Program
PROC: F07M6FZ Therapeutic Exercise Treatment of Musculoskeletal System - Whole Body using Assistive, Adaptive, Supportive or Protective Equipment (ICD-10-PCS; principal; 2016-12-21)
PROC: F08Z4FZ Home Management Treatment using Assistive, Adaptive, Supportive or Protective Equipment (ICD-10-PCS; 2016-12-21)
PROC: 3E03329 Introduction of Other Anti-infective into Peripheral Vein, Percutaneous Approach (ICD-10-PCS; 2016-12-21)
PROC: 0HBRXZZ Excision of Toe Nail, External Approach (ICD-10-PCS; 2016-12-25)
DX: N39.0 Urinary tract infection, site not specified (principal); L89.152 Pressure ulcer of sacral region, stage 2; A04.72 Enterocolitis due to Clostridium difficile, not specified as recurrent; B96.4 Proteus (mirabilis) (morganii) as the cause of diseases classified elsewhere; D69.6 Thrombocytopenia, unspecified; Z16.24 Resistance to multiple antibiotics; Z78.9 Other specified health status; M25.559 Pain in unspecified hip; R42 Dizziness and giddiness; R41.82 Altered mental status, unspecified; R53.1 Weakness; L60.8 Other nail disorders